=== PATIENT | male | born 1955 | race Native Hawaiian/Other Pacific Islander ===

== ENCOUNTER 2022-04-05 15:31 | Outpatient (CLI) | payer OTHER | END 2022-04-05 23:14 | disposition home or self-care (01) | LOC: RAD 15:31 → LABW 15:31 → RAD 23:14 | PROVIDERS: ATTEND Nurse Practitioner | DX: R60.0 Localized edema (principal) ==

== ENCOUNTER 2022-04-09 09:47 | Outpatient (CLI) | payer OTHER ==
[2022-04-09 10:25] LABS: PLATELET COUNT 318 K/uL (142-355)
[2022-04-09 10:30] LABS: POTASSIUM 4.1 mmol/L (3.6-5.2)
[2022-04-09 10:39] LABS: PARTIAL THROMBOPLASTIN TIME 32.1 SECONDS (24.5-33.6)
== END 2022-04-09 19:33 | disposition home or self-care (01) ==
LOC: LABW 09:47
PROVIDERS: ATTEND Nurse Practitioner
DX: R60.0 Localized edema (principal); R06.09 Other forms of dyspnea; Z51.81 Encounter for therapeutic drug level monitoring; Z79.899 Other long term (current) drug therapy
CPT/HCPCS: 36415; 80053; 83880; 85027; 85379; 85610; 85652; 85730; 86140